=== PATIENT | male | born 1960 | race Caucasian/White ===

== ENCOUNTER 2016-07-31 14:35 | Emergency (ER) | payer MEDICAID, OTHER ==
[~2016-07-31] VITALS: Ht 165.1 cm; Wt 89.0 kg
[2016-07-31 14:37] VITALS: Ht 165.1 cm; Wt 89.0 kg
[2016-07-31] MEDS ORDERED: ONDANSETRON 4 MG INJ IV STA (16:48)
[2016-07-31] MEDS ORDERED: HYDROmorphONE 1 MG/ML SYG IV STA (16:48)
[2016-07-31] MEDS ORDERED: SOD CHLORIDE 0.9% 1,000 ML IV STA (16:48)
[2016-07-31 16:52] LABS: ADD SCAN DIFF NO
[2016-07-31 16:56] LABS: BASOPHIL # 0.1 10^3/ul (0.0-0.1); BASOPHILS % 0.7 % (0.0-2.0); EOSINOPHILS # 0.5 10^3/ul (0.0-0.5); EOSINOPHILS % 5.5 % (0.0-7.0); HEMATOCRIT 44.4 % (42.0-52.0); HEMOGLOBIN 14.8 g/dl (14.0-18.0); LYMPHOCYTES # 2.4 10^3/ul (0.8-2.9); MEAN CORPUSCULAR HGB CONC 33.3 g/dl (32.0-37.0); MEAN CORPUSCULAR VOLUME 87.1 fl (82.0-101.0); MEAN PLATELET VOLUME 10.5 fl (7.4-10.4); MONOCYTE # 0.5 10^3/ul (0.3-0.9); MONOCYTES % 5.5 % (0.0-11.0); NEUTROPHIL # 4.9 10^3/ul (1.6-7.5); NEUTROPHILS % 58.9 % (39.0-77.0); PLATELET COUNT 236 10^3/UL (140-415); RED CELL DISTRIBUTION WIDTH 13.4 % (11.5-14.5); WHITE BLOOD COUNT 8.3 10^3/ul (4.8-10.8)
[2016-07-31] MEDS ORDERED: CYCL5TAB PO (17:12)
[2016-07-31] MEDS ORDERED: NAPR-260 PO (17:18)
--- NOTE | 2016-07-31 17:19 | RADRPT ---
PROCEDURE: Right upper quadrant ultrasound CLINICAL INDICATION: Abdominal pain TECHNIQUE: Multiple real-time images were acquired of the patient's abdomen and right retroperiton eum utilizing a high resolution transducer. COMPARISON: None FINDINGS: The liver is normal in echogenicity and measures 15.4 cm. No focal hepatic masses are seen. The ga llbladder is physiologically distended. There are calcified gallstones. There is no gallbladder wa ll thickening or pericholecystic fluid. The intra and extrahepatic bile ducts are normal in caliber . The common bile duct measures 4.5 mm. Pancreas is suboptimally visualized. Survey views of the right kidney demonstrate no evidence of hydronephrosis or renal calculi. The ri ght kidney measures 10.7 cm. IMPRESSION: 1. Cholelithiasis. No gallbladder wall thickening or pericholecystic fluid to suggest cholecystiti s. 2. Pancreas suboptimally seen RPTAT: HH .Rey Keita MD, Date Time Electronically viewed and signed by .Rey Keita MD, MD on 07/31/2016 17:19 .W/
[2016-07-31 18:37] LABS: ALBUMIN 3.7 g/dl (3.3-4.9)
[2016-07-31 18:38] LABS: POTASSIUM 4.3 mmol/L (3.5-5.1)
[2016-07-31 18:40] LABS: ALBUMIN/GLOBULIN RATIO 1.19; BILIRUBIN,INDIRECT 0.3 mg/dl (0-1.1); BILIRUBIN,TOTAL 0.3 mg/dl (0.2-1.3); CREATININE 0.77 mg/dl (0.61-1.24); TOTAL PROTEIN 6.8 g/dl (6.1-8.1)
[2016-07-31 18:41] LABS: CALCIUM 8.8 mg/dl (8.4-10.2)
[2016-07-31] MEDS ORDERED: DICY10CA60 PO (19:41)
[2016-07-31] MEDS ORDERED: HYDR-902 PO (19:41)
[2016-07-31 19:53] VITALS: BP 118/74; PULSE 56; RESP 18; TEMP 98.1
--- NOTE | 2016-09-16 17:30 | ERD ---
ER Documentation Chief Complaint Date/Time DATE: 09/16/16 TIME: 17:29 Chief Complaint ruq pain x 2 mos HPI This is a 56-year-old female with a history of gallstones for the past 2 months diagnosed in all of you. The patient says she is having a flareup today with right upper quadrant pain and nausea. Pain does not radiate to the back. No vomiting chest pain fever no diarrhea. The pain is described as cramping in the right upper quadrant. The pain is worse after meals. Pain is consistent with her prior 2 month history ROS All systems reviewed and are negative except as per history of present illness. Medications Home Meds Active Scripts Hydrocodone/Acetaminophen (Formoso 10-325 Tablet) 1 Each Tablet, 1 EACH PO q 4-6 hour prn pain, #20 TAB Prov:SOFIA BATES DO 07/31/16 Dicyclomine Hcl* (Bentyl*) 10 Mg Capsule, 20 MG PO QID, #30 CAP Prov:SOFIA BATES DO 07/31/16 Reported Medications Naproxen* (Naprosyn*) 500 Mg Tablet, 500 MG PO BID, TAB 07/31/16 Cyclobenzaprine Hcl* (Cyclobenzaprine Hcl*) 5 Mg Tablet, 5 MG PO DAILY, #60 TAB FOR 14 DAYS 07/31/16 Allergies Allergies: Coded Allergies: No Known Allergy (Unverified , 07/31/16) PMhx/Soc History of Surgery: Yes (hernia repair, B knee surgery.) Anesthesia Reaction: No Hx Neurological Disorder: No Hx Respiratory Disorders: No Hx Cardiac Disorders: No Hx Psychiatric Problems: No Hx Miscellaneous Medical Probl: No Hx Alcohol Use: Yes Hx Substance Use: No Hx Tobacco Use: No Smoking Status: Former smoker FmHx Family History: No coronary disease Physical Exam Physical Exam Const: Well-developed, well-nourished Head: Atraumatic, normocephalic Eyes: Normal Conjunctiva, PERRLA, EOMI, normal sclera, no nystagmus ENT: Normal External Ears, Nose and Mouth, moist mucus membranes. Neck: Full range of motion. No meningismus, no lymphadenopathy. Resp: Clear to auscultation bilaterally, no wheezing, rhonchi, rales Cardio: Regular rate and rhythm, no murmurs, S1 S2 present Abd: Soft, mild right upper quadrant tenderness, non distended. Normal bowel sounds, no guarding or rebound, no pulsitile abdominal masses or bruits Skin: No petechiae or rashes, no ecchymosis , no maculopapular rash Back: No midline or flank tenderness Ext: No cyanosis, or edema, FROM x 4, normal inspection, neurovascularly intact x 4 Neur: Awake and alert, STR 5/5 x 4, sensation intact x 4, no focal findings, cerebellum intact Psych: Normal Mood and Affect Results 24 hrs Laboratory Tests Test 07/31/16 16:50 07/31/16 18:10 White Blood Count 8.310^3/ul Red Blood Count 5.1010^6/ul Hemoglobin 14.8g/dl Hematocrit 44.4% Mean Corpuscular Volume 87.1fl Mean Corpuscular Hemoglobin 29.0pg Mean Corpuscular Hemoglobin Concent 33.3g/dl Red Cell Distribution Width 13.4% Platelet Count 54564^3/UL Mean Platelet Volume 10.5fl Neutrophils % 58.9% Lymphocytes % 29.0% Monocytes % 5.5% Eosinophils % 5.5% Basophils % 0.7% Nucleated Red Blood Cells % 0.0/100WBC Neutrophils # 4.910^3/ul Lymphocytes # 2.410^3/ul Monocytes # 0.510^3/ul Eosinophils # 0.510^3/ul Basophils # 0.110^3/ul Nucleated Red Blood Cells # 0.010^3/ul Sodium Level 140mmol/L Potassium Level 4.3mmol/L Chloride Level 104mmol/L Carbon Dioxide Level 27mmol/L Anion Gap 13 Blood Urea Nitrogen 10mg/dl Creatinine 0.77mg/dl Glucose Level 91mg/dl Calcium Level 8.8mg/dl Total Bilirubin 0.3mg/dl Direct Bilirubin 0.00mg/dl Indirect Bilirubin 0.3mg/dl Aspartate Amino Transf (AST/SGOT) 32IU/L Alanine Aminotransferase (ALT/SGPT) 50IU/L Alkaline Phosphatase 67IU/L Total Protein 6.8g/dl Albumin 3.7g/dl Globulin 3.10g/dl Albumin/Globulin Ratio 1.19 Lipase 71U/L Current Medications Medications (Trade) Dose Ordered Sig/Fidel Route PRN Reason Start Time Stop Time Status Last Admin Dose Admin Sodium Chloride (NS) 1,000 ml @ 1,000 mls/hr Q1H STAT IV 07/31/16 16:48 07/31/16 17:47 DC 07/31/16 16:53 Hydromorphone HCl (Dilaudid) 1 mg ONCE STAT IV 07/31/16 16:48 07/31/16 16:49 DC 07/31/16 16:54 Ondansetron HCl (Zofran Inj) 4 mg ONCE STAT IV 07/31/16 16:48 07/31/16 16:49 DC 07/31/16 16:53 Procedures/MDM PROCEDURE: Right upper quadrant ultrasound CLINICAL INDICATION: Abdominal pain TECHNIQUE: Multiple real-time images were acquired of the patient's abdomen and right retroperitoneum utilizing a high resolution transducer. COMPARISON: None FINDINGS: The liver is normal in echogenicity and measures 15.4 cm. No focal hepatic masses are seen. The gallbladder is physiologically distended. There are calcified gallstones. There is no gallbladder wall thickening or pericholecystic fluid. The intra and extrahepatic bile ducts are normal in caliber. The common bile duct measures 4.5 mm. Pancreas is suboptimally visualized. Survey views of the right kidney demonstrate no evidence of hydronephrosis or renal calculi. The right kidney measures 10.7 cm. IMPRESSION: 1. Cholelithiasis. No gallbladder wall thickening or pericholecystic fluid to suggest cholecystitis. 2. Pancreas suboptimally seen RPTAT: HH .Rey Keita MD, Date Time Electronically viewed and signed by .Rey Keita MD, on 07/31/2016 17:19 .W/ CC: SOFIA BATES DO Patient received pain medication she is pain-free currently. Blood tests are unremarkable liver functions are normal. No signs of cholecystitis. Will discharge home with pain medication and follow-up Departure Diagnosis: Primary Impression: Gallstones Condition: Stable Patient Instructions: Gallstones Referrals: NO PRIMARY,CARE PHYSICIAN (PCP) SOFIA BATES DO September 16, 2016 17:30
== END 2016-07-31 19:56 | disposition home or self-care (01) ==
LOC: E/R 14:35
DX: K80.20 Calculus of gallbladder without cholecystitis without obstruction (principal); R11.0 Nausea; Z87.891 Personal history of nicotine dependence
CPT/HCPCS: 76705; 80053; 83690; 85025; J1170; J2405; J7030; 36415; 96361; 96374; 96375